=== PATIENT | female | born 1985 | race Caucasian/White ===

== ENCOUNTER 2018-03-21 17:53 | Emergency (ER) | payer OTHER ==
[~2018-03-21] VITALS: Ht 167.6 cm; Wt 56.7 kg
--- NOTE | ~2018-03-21 | EKG ---
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
[~2018-03-21 17:53] MED LIST: NOHOMEMEDICATIONS; NORCO 5-325 TA1 EACH PO; ZOFRAN4 MG PO
[2018-03-21 18:39] LABS: ABSOLUTE NEUTROPHILS 3.2 thou/uL (1.4-8.2); BASOPHILS 0.8 % (0.0-2.0); EOSINOPHILS 1.9 % (0.0-3.0); HEMATOCRIT 38.1 % (37.0-47.0); HEMOGLOBIN 13.2 gm/dL (12.0-15.0); LYMPHOCYTES 38.5 % (24.0-44.0); MCH 30.8 pg (26.0-34.0); MCHC 34.6 g/dL (28.0-37.0); MCV 89.1 fL (80.0-100.0); MONOCYTES 9.2 % (1.0-8.0); PLATELET COUNT 216 thou/uL (150-400); POLYS 49.6 % (36.0-66.0); RBC 4.27 mil/uL (4.20-5.00); RDW 12.5 % (10.5-14.5); WBC 6.4 thou/uL (4.0-11.0)
[2018-03-21 18:45] LABS: CALCIUM 8.7 mg/dL (8.5-10.1); CREATININE 0.8 mg/dL (0.6-1.0); POTASSIUM 3.6 mmol/L (3.5-5.1)
[2018-03-21 21:33] VITALS: BP 114/73
== END 2018-03-21 21:34 | disposition home or self-care (01) ==
LOC: ER 17:53
PROVIDERS: Emergency Medicine
DX: R07.89 Other chest pain (principal); R00.2 Palpitations; D68.0 Von Willebrand disease